=== PATIENT | male | born 1955 | race Caucasian/White ===

== ENCOUNTER 2022-07-15 08:29 | Day surgery (SDC) | payer MEDICARE ==
[2022-07-15] VITALS (17 sets, daily range): BP systolic 102–124; BP diastolic 58–74
[~2022-07-15] VITALS: Ht 177.8 cm; Wt 46.1 kg
[2022-07-15] MEDS ORDERED: normal saline 1000ml 1,000 ML IV PRN (09:00)
[2022-07-15] MEDS ORDERED: IBUP-1984 PO (09:15)
[2022-07-15] MEDS ORDERED: MECL-226 PO (09:15)
[2022-07-15] MEDS ORDERED: MORP30TA PO (09:16)
[2022-07-15] MEDS ORDERED: OXYC-658 PO (09:16)
[2022-07-15] MEDS ORDERED: SERT25TA PO (09:16)
[2022-07-15] MEDS ORDERED: ESOM40CA PO (09:16)
[2022-07-15] MEDS ORDERED: LEVO50TA PO (09:16)
[2022-07-15] MEDS ORDERED: ATOR20TA PO (09:17)
[2022-07-15 10:00] LABS: BASOPHILS % (AUTO) 0.1 % (0-1); EOSINOPHILS % (AUTO) 0.6 % (0-6); HEMATOCRIT 28.3 % (42.0-52.0); HEMOGLOBIN 9.6 g/dl (14.0-17.9); LYMPHOCYTES # (AUTO) 0.7 X10'3 (1.1-4.8); LYMPHOCYTES % (AUTO) 12.3 % (21-51); MEAN CORPUSCULAR HEMOGLOBIN 30.6 PG (27.0-31.0); MEAN CORPUSCULAR HGB CONC 33.9 g/dL (33.0-36.5); MEAN CORPUSCULAR VOLUME 90.4 FL (78-98); MEAN PLATELET VOLUME 7.5 FL (7.4-10.4); MONOCYTES # (AUTO) 0.6 X10'3 (0-0.9); MONOCYTES % (AUTO) 9.5 % (2-12); NEUTROPHILS # (AUTO) 4.7 X10'3 (1.8-7.7); NEUTROPHILS % (AUTO) 77.5 % (42-75); PLATELET COUNT 165 X10'3 (140-440); RED BLOOD COUNT 3.13 X10'6 (4.70-6.10); RED CELL DISTRIBUTION WIDTH 14.9 % (11.5-14.5); WHITE BLOOD COUNT 6.1 X10'3 (4.5-11.0)
[2022-07-15] MEDS ORDERED: fentaNYL/PF 50MCG/1 ML 2ML syringe ONE (12:26)
[2022-07-15] MEDS ORDERED: midazolam 1 mg/ML 2ml injection ONE (12:26)
[2022-07-15] MEDS ORDERED: gelatin sponge, absorbable (Gelfoam 12-7MM) sponge TP ONE (13:16)
[2022-07-15] MEDS ORDERED: HYDROcodone/acetaminophen 5mg/325mg tablet PO PRN ×2 (13:30)
--- NOTE | 2022-07-15 16:25 | NUR ---
Notified Dr. Mtz that 3rd CXR still has not been read. Patient wants to leave [facility] due to a [address] Mtz stated that it looks good and the patient can go home.
== END 2022-07-15 16:30 | disposition home or self-care (01) ==
LOC: SSTAY O 08:29
PROVIDERS: ATTEND Radiology Vascular & Interventional Radiology
DX: R91.8 Other nonspecific abnormal finding of lung field (principal); Z79.899 Other long term (current) drug therapy; Z79.01 Long term (current) use of anticoagulants; Z87.891 Personal history of nicotine dependence; Z82.49 Family history of ischemic heart disease and other diseases of the circulatory system; Z80.1 Family history of malignant neoplasm of trachea, bronchus and lung; Z98.890 Other specified postprocedural states
CPT/HCPCS: 32408; 36415; 71045; 85025; 85610; 99152; 99153; J2250; J3010; J7030; 77012; 88305; A4615